=== PATIENT | male | born 2000 | race Two or more races ===

== ENCOUNTER 2019-08-19 22:21 | Emergency (ER) | payer SELFPAY ==
[~2019-08-19] VITALS: Ht 170.2 cm; Wt 74.0 kg
[2019-08-19] MEDS ORDERED: SODIUM CHLORIDE 0.9% 1,000 ML IV ONE (23:10)
[2019-08-19] MEDS ORDERED: ONDANSETRON HCL 4MG/2ML INJ IV ONE (23:15)
[2019-08-20 00:07] LABS: BASOPHILS % 0.2 % (0.0-2.0); EOSINOPHILS % 0.3 % (0.0-5.0); HEMATOCRIT. 40.2 % (42.0-52.0); HEMOGLOBIN. 13.3 g/dL (14.0-18.0); LYMPHOCYTES % 12.2 % (20.0-50.0); MEAN CORPUSCULAR HEMOGLOBIN 27.4 pg (28.0-32.0); MEAN CORPUSCULAR VOLUME 82.7 fL (80.0-94.0); MONOCYTES % 6.1 % (2.0-8.0); NEUTROPHILS % 81.2 % (40.0-76.0); RED BLOOD CELL COUNT 4.86 mill/uL (4.7-6.1); RED CELL DISTRIBUTION WIDTH 13.8 % (11.6-14.6)
[2019-08-20 00:20] LABS: CHLORIDE 111 mEq/L (98-107)
[2019-08-20 00:30] LABS: ETHANOL BLOOD 130 mg/dL
[2019-08-20 00:58] LABS: MEAN PLATELET VOLUME 9.3 fl (7.4-10.4); PLATELET 163 x1000/uL (130-400)
[2019-08-20 06:12] VITALS: BP 105/81
== END 2019-08-20 06:15 | disposition home or self-care (01) ==
LOC: ER 22:21
DX: F10.129 Alcohol abuse with intoxication, unspecified (principal); R11.10 Vomiting, unspecified; I49.8 Other specified cardiac arrhythmias; Y90.6 Blood alcohol level of 120-199 mg/100 ml
CPT/HCPCS: 36415; 80053; 80320; 85025; 93005; 96361; 96374; 99284; J2405; J7030; Z7610; G0480